=== PATIENT | female | born 1945 | race Caucasian/White ===

== ENCOUNTER → 2017-11-21 15:37 | Outpatient (CLI) | payer MEDICARE, OTHER, MEDICAID, SELFPAY ==
--- NOTE | 2017-11-21 | XR_ITS ---
XR DEXA axial skeleton HISTORY: ITS.REASON: POST MEOPAUSAL , RT BREAST CANCER ORDERING PHYSICIAN: Vincent Kulkarni MD PATIENT AGE: 72 years COMPARISON: None FINDINGS: 04/12/2011 The BMD measured at the left femoral neck is 0.847 g/cm squared with a T score of -1.4 . This is considered Osteopenic according to the World Health Organization criteria. Fracture risk is Moderate. Treatment is advised. The L1 L4 density has a T score of 0.3. The lumbar spine density has increased by 3%. However, the hip density has decreased 14% compared to the previous exam IMPRESSION: Osteopenia. Moderate fracture risk. Treatment is advised. Recommend follow-up in October 2019
--- NOTE | 2017-11-21 | MM_ITS ---
MM Dig SC mamm unilat LT CAD CAD Screening ORDERING PHYSICIAN : Vincent Kulkarni MD PATIENT AGE: 72 years GENDER: Femal INDICATION: . No hormones. No new complaints. Previous right mastectomy TECHNIQUE: Left mammogram Standard CC and MLO images were obtained. Additional CC and MLO nipple profile views included R2 CAD reviewed. COMPARISON: Previous left mammogram: October 2016, 2015, 2014 . FINDINGS: LEFT BREAST: Moderately dense heterogeneous breast parenchymal pattern with no new dominant mass nor suspicious calcifications either breast.-Calcifications along with benign scattered calcifications noted similar to previous studies. No suspicious grouped calcifications. Areas of relative density on one view dissipate on another in this heterogeneous, breast. Follow-up left mammogram 1 year adequate IMPRESSION:======== No significant interval change. Stable left breast. Moderately dense heterogeneous fibroglandular elements particularly for this age patient;. However no new areas of concern BI-RADS Category: 2 Benign Finding(s) RECOMMENDED FOLLOW-UP: 1YR - 1 YEAR FOLLOW-UP (A letter has been sent to the patient regarding results of the study.)
[2017-11-21 16:31] LABS: Basophils % 0.5 % (0.1-2.0); Eosinophils # 0.3 K/mm3 (0.0-0.4); Hematocrit 41.1 % (37.0-47.0); Lymphocytes # 1.4 K/mm3 (0.7-4.5); Lymphocytes % 23.3 K/mm3 (10-50); Mean Corpuscular HGB Conc 31.5 g/dL (31.8-35.4); Mean Corpuscular Hemoglobin 28.9 pg (27.0-31.2); Mean Corpuscular Volume 91.7 fl (81-99); Mean Platelet Volume 7.6 fl (7.4-10.4); Monocytes # 0.3 K/mm3 (0.1-1.0); Monocytes % 4.8 % (1.7-9.3); Neutrophils # 4.1 K/mm3 (1.8-7.8); Neutrophils % 67.4 % (37.0-80.0); Platelet Count 251 K/mm3 (142-424); Red Blood Count 4.48 M/mm3 (4.20-5.40); Red Cell Distribution Width 13.4 % (11.5-17.5); White Blood Count 6.1 K/mm3 (4.8-10.8)
[2017-11-21 16:41] LABS: Alanine Aminotransferase 22 U/L (12-78); Albumin Level 3.5 gm/dL (3.4-5.0); Alkaline Phosphatase 105 U/L (46-116); Anion Gap 11.8 mEq/L (5-15); Aspartate Amino Transferase 16 U/L (15-37); Bilirubin,Total 0.4 mg/dL (0.2-1.0); Blood Urea Nitrogen 19 mg/dL (7-18); Calcium 9.1 mg/dL (8.5-10.1); Carbon Dioxide 29 mmol/L (21.0-32.0); Chloride 100 mmol/L (98-107); Creatinine,Serum 0.84 mg/dL (0.55-1.02); Estimated Glomerular Filt Rate 67 ml/min (>60); GFR (African American) 81 ML/MIN (>60); Globulin 3.5 gm/dl (1.3-3.2); Glucose 319 mg/dL (74-106); Potassium 4.8 mmoL/L (3.5-5.1); Sodium 136 mmol/L (136-145)
== END ==
PROVIDERS: Nurse Practitioner; Family Provider Family Medicine; PCP Family Medicine; Visit Provider Internal Medicine
DX: Z12.31 Encounter for screening mammogram for malignant neoplasm of breast (principal); C50.911 Malignant neoplasm of unspecified site of right female breast; Z78.0 Asymptomatic menopausal state
CPT/HCPCS: 36415; 77067; 77080; 80053; 85025

== ENCOUNTER → 2018-02-01 13:29 | Outpatient (CLI) | payer MEDICARE, OTHER, SELFPAY ==
--- NOTE | 2018-02-01 13:35 | MR_ITS ---
MR lumbar spine wo con HISTORY: Low back pain with bilateral hip pain. Pain radiating into the right leg ITS.REASON: LOW BACK PAIN ORDERING PHYSICIAN: Rosy Dawn PATIENT AGE: 72 years Comparison: None TECHNIQUE: Standard multiplanar multiecho sequences are performed without contrast. 3-D MIP and myelographic images are also rendered and reviewed FINDINGS: Spinal cord ends at the T12 level. There is normal alignment. Mild degenerative disc disease T11-T12. L1-L2 and L2-L3 have an unremarkable appearance. L3-L4: There is a complex area of mixed intensity in the right paracentral and medial foraminal region at L3-L4 measuring approximately 1 cm mostly hypointense on T1 and hyperintense on T2 with some peripheral and small punctate central areas of decreased T2 signal. This is immediately adjacent to the hypertrophied facet joint at that level and may represent a complex synovial cyst. This is is causing right lateral recess and foraminal narrowing and causing impingement on the right L4 nerve root. L4-L5: Mild facet hypertrophic change. L5-S1: Transitional segment is present at this level. Incidental note made of a 2 cm right renal cyst IMPRESSION: 1. 1 cm complex area of mixed signal intensity in the right paracentral and medial foraminal region at L3-L4 mostly hypointense on T1 and hyperintense on T2 with some peripheral and small punctate central areas of decreased T2 signal. This is immediately adjacent to the hypertrophied facet joint at that level and may represent a complex synovial cyst. A complex extruded disc is felt to be less likely based on the appearance but not completely excluded. This is is causing right lateral recess and foraminal narrowing and causing impingement on the right L4 nerve root. 2. Otherwise essentially negative MRI of the lumbar spine.
--- NOTE | 2018-02-01 13:51 | MR_ITS ---
MR humerus LT wo con CLINICAL INDICATION: ITS.REASON: LEFT UPPER ARM SOFT TISSUE MASS, PAIN, limited range of motion, history of breast cancer and history of rotator cuff surgery ORDERING PHYSICIAN: Rosy Dawn PATIENT AGE: 72 years TECHNIQUE: Multiplanar multiecho sequences are performed without contrast. A marker is placed on the area of concern. Comparison: None FINDINGS: No soft tissue mass apparent in the area of clinical concern regarding the left upper extremity. Only subcutaneous fat is noted deep to the placed marker. No muscle mass or bony lesion evident at this region. Patient has had prior left shoulder surgery. No evidence of metastatic lesion of the humerus or subcutaneous tissues or muscle tissue. No evidence of aneurysm or abscess. IMPRESSION: 1. Negative MRI of the left upper extremity. No mass or other significant anomalies evident. 2. Postsurgical changes of left shoulder
== END ==
PROVIDERS: Family Provider Family Medicine; PCP Family Medicine; Visit Provider Nurse Practitioner
DX: M54.5 Low back pain (principal)
CPT/HCPCS: 72148; 73218; 76376

== ENCOUNTER 2019-12-27 19:12 | Emergency (ER) | payer MEDICARE, OTHER, SELFPAY ==
[2019-12-27 19:25] VITALS: BP 133/60; PULSE 114; RESP 16; O2SAT 98; BMI 37.2
[2019-12-27 19:41] VITALS: BP 133/60; PULSE 114; RESP 16; TEMP 36.7; O2SAT 98; BMI 37.2
--- NOTE | 2019-12-27 20:09 | HMH.EDUTC ---
[facility] [place] Disposition Condition on Discharge: Fair <Lalo Sanchez - Last Filed: 12/27/19 20:27> <Onesimo Morejon - Last Filed: 12/27/19 22:03> Clinical Impression: Hyperglycemia, Hives Disposition: Home, Self-Care Instructions: DI for Hyperglycemia -- Adult Additional Instructions: call pcp in am Referrals: Provider,Referral, MD [Primary Care Provider] - Medical Decision Making - Medical Records Medical records reviewed: No: I reviewed the patient's medical records. - Malcolm Inquiry Pt receiving controlled substance: No - Lab Data Lab results reviewed: Yes: I reviewed the patient's lab results. <Lalo Sanchez - Last Filed: 12/27/19 20:27> - Lab Data Result diagrams: 12/27/19 20:45 12/27/19 19:50 - Reevaluation(s) Time: 22:02 <Onesimo Morejon - Last Filed: 12/27/19 22:03> Vital Signs: 12/27/19 19:25 12/27/19 19:41 12/27/19 20:41 Temperature 98.0 F Temperature Source Oral Pulse Rate [Left Radial] 114 H 114 H 110 H Respiratory Rate 16 16 17 Blood Pressure [Right Arm] 133/60 133/60 131/70 Blood Pressure Mean [Right Arm] 84 84 90 Blood Pressure Source [Right Arm] Automatic Cuff Automatic Cuff Blood Pressure Position [Right Arm] Sitting Sitting Sitting 02 Sat by Pulse Oximetry 98 98 98 Oxygen Delivery Method Room Air Room Air Room Air - Lab Data Lab Results 12/27/19 19:50: Random Glucose 702 H* 12/27/19 19:50: Sodium 129 L, Potassium 4.4, Chloride 93 L, Carbon Dioxide 23, Anion Gap 17.4 H, BUN 21 H, Creatinine 0.90, Estimated Creat Clear 74, Estimated GFR 61, Est GFR ( Amer) 74, Glucose 699 H*, Calcium 9.0, Total Bilirubin 0.5, AST 39 H, ALT 30, Alkaline Phosphatase 133 H, Total Protein 6.6, Albumin 3.9, Globulin 2.7, Albumin/Globulin Ratio 1.4 12/27/19 20:45: WBC 8.9, RBC 5.34, Hgb 15.7, Hct 51.5 H, MCV 96.3, MCH 29.3, MCHC 30.4 L, RDW 13.7, Plt Count 332, MPV 8.5, Neut % (Auto) 75.5, Lymph % (Auto) 17.5, Bradford % (Auto) 5.4, Eos % (Auto) 0.8, Baso % (Auto) 0.7, Neut # (Auto) 6.7, Lymph # (Auto) 1.6, Bradford # (Auto) 0.5, Eos # (Auto) 0.1, Baso # (Auto) 0.1 12/27/19 20:45: Acetone Level None detected 12/27/19 21:20: Urine Color Yellow, Urine Appearance Clear, Urine pH 6.0, Ur Specific Evarts <= 1.005, Urine Protein Negative, Urine Glucose (UA) 3+, Urine Ketones Negative, Urine Blood Negative, Urine Nitrate Negative, Urine Bilirubin Negative, Urine Urobilinogen 0.2, Ur Leukocyte Esterase Negative, Urine WBC 3-5, Ur Squamous Epith Cells 5-10, Urine Bacteria 1+ Orders (Tests/Meds): ED MEDICATIONS Generic Name Dose Route Start Last Admin Trade Name Freq PRN Reason Stop Dose Admin Sodium Chloride 1,000 mls @ 999 mls/hr 12/27/19 21:00 12/27/19 20:53 Sod Chlor 0.9% 1000ml Bag IV 12/27/19 22:00 999 mls/hr .[id number] AWILDA Administration Discontinued Medications Generic Name Dose Route Start Last Admin Trade Name Freq PRN Reason Stop Dose Admin Insulin Human Regular 10 unit 12/27/19 21:10 12/27/19 21:12 Humulin R Insulin 100 Units/Ml 10ml Vial IVP 12/27/19 21:11 10 unit ONCE ONE Administration ORDERS Category Date Time Status POC Glucose,Bedside Stat Lab 12/27/19 19:54 Ordered - Reevaluation(s) Reevaluation #1: doing better (Onesimo Morejon) Medical Decision Narrative: We check her fsbs before giving her steroids. IT resulted too high to read. So blood was drawn and sent to the lab. The blood sugar result comes back 702. I spoke to the Er doctor (Dr. Morejon). She was transferred to the ER for further evaluation. (Lalo Sanchez) [facility] [place] HPI - General Mode of Arrival: Ambulatory Source of Information: Patient Limitations: No Limitations Description of Symptoms (Recalled from Triage Doc. by RN): PATIENT C/O RED, RAISED, ITCHY RASH TO ABDOMEN, BACK, BILATERAL UPPER LEGS AND ARMS SINCE THIS MORNING. NO KNOWN EXPOSURE TO ANY ALLERGENS. PATIENT HAS BEEN WORKING IN [employer] Symptoms (Recalled from RN notes): No Resp Symptoms (Recalled from RN note
[2019-12-27 20:21] LABS: Glucose,Random 702 mg/dL (74-100)
[2019-12-27 20:41] VITALS: BP 131/70; PULSE 110; RESP 17; O2SAT 98; BMI 34.9
[2019-12-27 20:42] LABS: Chloride 93 mmol/L (98-107)
[2019-12-27 20:43] LABS: Potassium 4.4 mmoL/L (3.5-5.1); Sodium 129 mmol/L (136-145)
[2019-12-27 20:45] LABS: Alanine Aminotransferase 30 U/L (12-78); Alkaline Phosphatase 133 U/L (38-126); Aspartate Amino Transferase 39 U/L (14-36); Bilirubin,Total 0.5 mg/dl (0.2-1.3); Blood Urea Nitrogen 21 mg/dl (7-17); Creatinine Clearance Estimated 74 mL/min (50-200); Estimated Glomerular Filt Rate 61 ml/min (>60); GFR (African American) 74 ML/MIN (>60)
[2019-12-27 20:46] LABS: Albumin Level 3.9 g/dl (3.5-5.0); Albumin/Globulin Ratio 1.4 (1.1-1.8); Anion Gap 17.4 mEq/L (5-15); Carbon Dioxide 23 mmol/L (22.0-30.0); Globulin 2.7 g/dL (1.3-3.2); Total Protein,Serum 6.6 g/dl (6.3-8.2)
[2019-12-27 21:08] LABS: Basophils # 0.1 K/mm3 (0-0.2); Basophils % 0.7 % (0.1-2.0); Eosinophils # 0.1 K/mm3 (0.0-0.4); Eosinophils % 0.8 % (0.1-12.0); Hematocrit 51.5 % (37.0-47.0); Hemoglobin 15.7 g/dL (12.2-16.2); Lymphocytes # 1.6 K/mm3 (0.7-4.5); Lymphocytes % 17.5 % (10-50); Mean Corpuscular HGB Conc 30.4 g/dL (31.8-35.4); Mean Corpuscular Hemoglobin 29.3 pg (27.0-31.2); Mean Corpuscular Volume 96.3 fl (81-99); Mean Platelet Volume 8.5 fl (7.4-10.4); Monocytes # 0.5 K/mm3 (0.1-1.0); Monocytes % 5.4 % (1.7-9.3); Neutrophils # 6.7 K/mm3 (1.8-7.8); Neutrophils % 75.5 % (37.0-80.0); Platelet Count 332 K/mm3 (142-424); Red Blood Count 5.34 M/mm3 (4.20-5.40); Red Cell Distribution Width 13.7 % (11.5-17.5); White Blood Count 8.9 K/mm3 (4.8-10.8)
[2019-12-27 21:10] LABS: Glucose 699 mg/dl (74-100)
[2019-12-27 21:16] LABS: Acetone, Serum (Rapid) None Detected (None Detect)
--- NOTE | 2019-12-27 21:22 | PC.NURSE ---
urine sent to lab
[2019-12-27 21:25] LABS: Microscopic, Urine URINE MICROSCOPIC (MICROSCOPIC)
[2019-12-27 21:36] LABS: Appearance,Urine CLEAR (Clear); Bilirubin,Urine Negative (Negative); Blood, Urine Negative (Negative); Color,Urine YELLOW (Yellow); Glucose,Urine (UA) 3+ (Negative); Ketones,Urine Negative (Negative); Leukocyte Esterase,Urine Negative (Negative); Nitrate,Urine Negative (Negative); Protein,Urine Negative (Negative); Specific Gravity, Urine <= 1.005 (1.005-1.030); Urobilinogen,Urine 0.2 EU/dl (0.2)
[2019-12-27 21:59] LABS: Bacteria,Urine 1+ /lpf
[2019-12-27 22:02] LABS: POC Glucose,Bedside 471 (70-110)
[2019-12-27 22:11] VITALS: BP 130/62; PULSE 102; RESP 16; TEMP 36.7; O2SAT 98
[2019-12-31 09:28] LABS: POC Glucose,Bedside > 600 (70-110)
== END 2019-12-27 22:24 | disposition home or self-care (01) ==
LOC: UTC 19:26 → ER 20:29
PROVIDERS: Nurse Practitioner Family; Emergency Provider Emergency Medicine
DX: L50.9 Urticaria, unspecified (principal); E11.65 Type 2 diabetes mellitus with hyperglycemia; I10 Essential (primary) hypertension; E78.5 Hyperlipidemia, unspecified; M81.0 Age-related osteoporosis without current pathological fracture; E03.9 Hypothyroidism, unspecified; Z79.899 Other long term (current) drug therapy; Z90.11 Acquired absence of right breast and nipple
CPT/HCPCS: 80053; 81001; 82009; 82947; 82962; 85025; 96365; 96372; 96375; 99282